=== PATIENT | male | born 1990 | race Caucasian/White ===

== ENCOUNTER → 2021-02-26 | Outpatient (CLI) | payer BC, OTHER ==
[~2021-02-26] MED LIST: BACTRIM DS TAB1 EACH PO; KEFLEX CAP 500500 MG PO
== END ==
LOC: SLEEP 15:03
DX: G47.10 Hypersomnia, unspecified (principal); R29.818 Other symptoms and signs involving the nervous system
CPT/HCPCS: 95810

== ENCOUNTER 2022-05-29 16:11 | Emergency (ER) | payer BC ==
[2022-05-29] MEDS ORDERED: IBUPROFEN600 MG PO (17:08)
== END 2022-05-29 16:30 | disposition home or self-care (01) ==
LOC: ER1 16:11
DX: S63.91XA Sprain of unspecified part of right wrist and hand, initial encounter (principal); F17.290 Nicotine dependence, other tobacco product, uncomplicated; X58.XXXA Exposure to other specified factors, initial encounter; Y92.89 Other specified places as the place of occurrence of the external cause; Y99.0 Civilian activity done for income or pay
CPT/HCPCS: 29125; 73110; 73130; 99283